=== PATIENT | female | born 1980 | race Caucasian/White ===

== ENCOUNTER 2018-05-25 09:55 | Emergency (ER) | payer MEDICAID ==
[~2018-05-25] VITALS: Ht 165.1 cm; Wt 98.0 kg
[~2018-05-25 09:55] MED LIST: DOXY100T2; FERROUS SULFATE; HYDROCODONE; LABETALOL; METR500T; MOTRIN
[2018-05-25] MEDS ORDERED: SODIUM CHLORIDE 0.9% 1,000 ML IV ONE (10:57)
[2018-05-25] MEDS ORDERED: KETOROLAC 30MG/ML VIAL IV STA (10:57)
[2018-05-25] MEDS ORDERED: METHYLPREDNISOLONE SOD SUCC 40 MG/ML VIAL IV ONE (11:00)
[2018-05-25 12:22] LABS: MONOTEST NEGATIVE (NEGATIVE)
[2018-05-25 14:55] VITALS: BP 120/82
[2018-05-25 14:57] LABS: HCG SCREEN NEGATIVE
== END 2018-05-25 15:05 | disposition left against medical advice (07) ==
LOC: ER 09:55
DX: J02.8 Acute pharyngitis due to other specified organisms (principal)
CPT/HCPCS: 84703; 86308; 87070; 87430; 87804; 96374; 96375; 99284; J1885; J2920; J7030; Z7610

== ENCOUNTER 2018-05-25 17:06 | Emergency (ER) | payer MEDICAID ==
[~2018-05-25] VITALS: Ht 165.1 cm; Wt 98.0 kg
[2018-05-25 17:14] VITALS: BP 106/65
== END 2018-05-25 20:48 | disposition left against medical advice (07) ==
LOC: ER 17:06
DX: K20.8 Other esophagitis (principal)
CPT/HCPCS: 72125; 81025; 99284

== ENCOUNTER 2018-12-15 03:57 | Emergency (ER) | payer MEDICAID ==
[~2018-12-15] VITALS: Ht 165.1 cm; Wt 87.0 kg
[2018-12-15 05:24] VITALS: BP 131/82
== END 2018-12-15 09:11 | disposition left against medical advice (07) ==
LOC: ER 03:57
DX: Z53.21 Procedure and treatment not carried out due to patient leaving prior to being seen by health care provider (principal); F17.200 Nicotine dependence, unspecified, uncomplicated

== ENCOUNTER 2019-01-01 07:56 | Inpatient (IN) | payer MEDICAID ==
[~2019-01-01] VITALS: Ht 162.6 cm; Wt 66.2 kg
[2019-01-01] MEDS ORDERED: SODIUM CHLORIDE 0.9% 1,000 ML IV ONE (08:03)
[2019-01-01 08:26] LABS: BASOPHILS % 0.4 % (0.0-2.0); EOSINOPHILS % 0.7 % (0.0-5.0); HEMATOCRIT. 37.1 % (36.0-48.0); HEMOGLOBIN. 12.4 g/dL (12.0-16.0); LYMPHOCYTES % 16.3 % (20.0-50.0); MEAN CORPUSCULAR HEMOGLOBIN 29.5 pg (28.0-32.0); MEAN PLATELET VOLUME 8.9 fl (7.4-10.4); MONOCYTES % 5.6 % (2.0-8.0); PLATELET 342 x1000/uL (130-400); RED BLOOD CELL COUNT 4.21 mill/uL (4.2-5.4); RED CELL DISTRIBUTION WIDTH 14.5 % (11.6-14.6)
[2019-01-01 08:27] LABS: CHLORIDE 108 mEq/L (98-107)
[2019-01-01] MEDS ORDERED: HYDROCODONE/ACETAMINOPHEN 5/325MG TABLET PO ONE (08:30)
[2019-01-01 08:45] LABS: B-HCG QUANTITATIVE 220 mIU/mL (<3)
[2019-01-01] MEDS ORDERED: MORPHINE SULFATE 4 MG/ML CPJ (NOT FOR IM USE) IV ONE ×2 (09:15→10:30)
[2019-01-01] MEDS ORDERED: MISOPROSTOL 200MCG TABLET RC ONE (10:30)
[2019-01-01 12:18] LABS: HEMATOCRIT 30.6 % (36.0-48.0); HEMOGLOBIN 10.3 g/dL (12.0-16.0); MEAN CORPUSCULAR HEMOGLOBIN 29.9 pg (28.0-32.0); MEAN CORPUSCULAR VOLUME 89.2 fL (81.0-99.0); PLATELET 264 x1000/uL (130-400); RED BLOOD CELL COUNT 3.43 mill/uL (4.2-5.4); RED CELL DISTRIBUTION WIDTH 14.5 % (11.6-14.6)
[2019-01-01 16:00] VITALS: BP 101/59
[2019-01-01] MEDS: LACTATED RINGERS 1,000 ML IV SCH (16:00)
[2019-01-01] MEDS ORDERED: IBUPROFEN 800MG TABLET PO PRN (16:00)
[2019-01-01 18:04] VITALS: BP 101/76
[2019-01-01] MEDS: HYDROCODONE/ACETAMINOPHEN 5/325MG TABLET PO PRN ×2 (18:11→22:55)
[2019-01-01 20:00] VITALS: BP 96/59
[2019-01-01] MEDS ORDERED: ONDANSETRON HCL 4MG/2ML INJ IV PRN (21:30)
[2019-01-01 22:49] LABS: BASOPHILS % 0.6 % (0.0-2.0); EOSINOPHILS % 1.1 % (0.0-5.0); HEMATOCRIT. 24.8 % (36.0-48.0); HEMOGLOBIN. 8.2 g/dL (12.0-16.0); LYMPHOCYTES % 13.2 % (20.0-50.0); MEAN CORPUSCULAR HEMOGLOBIN 29.7 pg (28.0-32.0); MEAN CORPUSCULAR VOLUME 89.3 fL (81.0-99.0); MONOCYTES % 4.6 % (2.0-8.0); NEUTROPHILS % 80.5 % (40.0-76.0); PLATELET 266 x1000/uL (130-400); RED BLOOD CELL COUNT 2.77 mill/uL (4.2-5.4); RED CELL DISTRIBUTION WIDTH 14.3 % (11.6-14.6)
[2019-01-02] VITALS (7 sets, daily range): BP systolic 95–111; BP diastolic 49–70
[2019-01-02] MEDS: LACTATED RINGERS 1,000 ML IV SCH ×3 (02:54→17:18)
== END 2019-01-02 19:05 | disposition home or self-care (01) | DRG 564 ==
LOC: ER 07:56 → 6EST 14:11 → ENRESERV 14:51
PROVIDERS: ADMIT Obstetrics & Gynecology; ATTEND Obstetrics & Gynecology
DX: O03.9 Complete or unspecified spontaneous abortion without complication (principal); D62 Acute posthemorrhagic anemia; D72.829 Elevated white blood cell count, unspecified; O99.012 Anemia complicating pregnancy, second trimester; O99.112 Other diseases of the blood and blood-forming organs and certain disorders involving the immune mechanism complicating pregnancy, second trimester; Z82.49 Family history of ischemic heart disease and other diseases of the circulatory system; Z83.3 Family history of diabetes mellitus; Z87.891 Personal history of nicotine dependence; Z3A.20 20 weeks gestation of pregnancy
CPT/HCPCS: 36415; 76801; 84702; 85027; 86850; 86900; 96361; 96374; 96376; 99285; J2270; J2405; J7030